=== PATIENT | male | born 1960 | race Caucasian/White ===

== ENCOUNTER 2022-02-01 07:43 | Day surgery (SDC) | payer OTHER ==
[2022-01-27 14:21] VITALS: BMI 33.2
[2022-02-01] MEDS ORDERED: PROPOFOL 120 ML ONE (07:48)
[2022-02-01 09:04] VITALS: TEMP 98
[2022-02-01 09:18] VITALS: RESP 18
[2022-02-01 09:50] VITALS: BP 125/82; PULSE 70
== END 2022-02-01 09:51 | disposition home or self-care (01) ==
LOC: FASU-ENDO 07:43
PROVIDERS: ATTEND Internal Medicine Gastroenterology
PROC: 0DBN8ZX Excision of Sigmoid Colon, Via Natural or Artificial Opening Endoscopic, Diagnostic (ICD-10-PCS; principal; 2022-02-01 08:41)
DX: Z12.11 Encounter for screening for malignant neoplasm of colon (principal); Z83.71 Family history of colonic polyps; D12.5 Benign neoplasm of sigmoid colon; K63.5 Polyp of colon; K57.30 Diverticulosis of large intestine without perforation or abscess without bleeding; D17.5 Benign lipomatous neoplasm of intra-abdominal organs
CPT/HCPCS: 82962; 88305-TC